=== PATIENT | female | born 1960 | race African-American/Black ===

== ENCOUNTER 2018-09-30 12:16 | Emergency (ER) | payer MEDICAID ==
[~2018-09-30] VITALS: Ht 160 cm; Wt 46.3 kg
[2018-09-30 13:36] LABS: Basophils # (auto) 0 uL; Basophils % (auto) 0.3 % (0.0-2.0); Eosinophils # (auto) 0 uL; Eosinophils % (auto) 0.3 % (0.0-7.0); Hematocrit 41.5 % (36.0-46.0); Lymphocytes # (auto) 2.2 uL; Lymphocytes % (auto) 23.8 % (10.0-50.0); Mean Corpuscular Hgb Conc. 33.6 g/dL (32.0-36.0); Monocytes # (auto) 0.7 uL; Monocytes % (auto) 7.1 % (0.0-12.0); Neutrophils # (auto) 6.5 uL; Neutrophils % (auto) 68.5 % (37.0-80.0); Platelet Count (auto) 275 10^3/uL (140-450); Red Blood Cells 4.52 10^6/uL (4.0-5.20); Red Cell Distribution Width 14.3 % (11.8-14.3); White Blood Cell 9.4 10^3/uL (4.4-10.8)
[2018-09-30 13:49] LABS: INR 0.97 (0.9-1.15); Partial Thromboplastin Time 25.4 sec (23.78-33.04); Prothrombin Time 10.4 sec (9.27-12.13)
[2018-09-30 13:53] LABS: Albumin 4.4 g/dL (3.4-5.0); Anion Gap 5 (5-15); Blood Urea Nitrogen 24 mg/dL (7-18); Calcium 9.4 mg/dL (8.5-10.1); Carbon Dioxide 30 mmol/L (21-32); Chloride 104 mmol/L (98-107); Glucose 97 mg/dL (74-106); Potassium 4.2 mmol/L (3.5-5.1); Sodium 139 mmol/L (136-145)
[2018-09-30 14:02] LABS: Alanine Aminotransferase 30 U/L (13-56); Alkaline Phosphatase 75 U/L (45-117); Aspartate Aminotransferase 26 U/L (15-37); BUN/Creatinine Ratio 22.2; Bilirubin, Total 0.4 mg/dL (0.2-1.0); GFR African American 67 mL/min; GFR Non-African American 56 mL/min; Total Protein 8.5 g/dL (6.4-8.2)
[2018-09-30 16:10] VITALS: BP 130/87
== END 2018-09-30 16:24 | disposition home or self-care (01) ==
LOC: ER 12:22
DX: S42.251A Displaced fracture of greater tuberosity of right humerus, initial encounter for closed fracture (principal); W19.XXXA Unspecified fall, initial encounter; Y93.89 Activity, other specified; Y92.89 Other specified places as the place of occurrence of the external cause; Y99.8 Other external cause status
CPT/HCPCS: 29105; 36415; 70450; 73030; 73502; 80053; 84484; 85025; 85610; 85730; 93005

== ENCOUNTER 2019-05-19 10:51 | Emergency (ER) | payer MEDICAID ==
[~2019-05-19] VITALS: Ht 160 cm; Wt 49.9 kg
[2019-05-19 11:35] VITALS: BP 209/115
[2019-05-19] MEDS ORDERED: ONDANSETRON ODT 4 MG TAB PO ONE (11:45)
[2019-05-19 12:28] LABS: Basophils # (auto) 0.1 uL; Basophils % (auto) 0.6 % (0.0-2.0); Eosinophils # (auto) 0 uL; Eosinophils % (auto) 0.5 % (0.0-7.0); Hemoglobin 13.8 g/dL (12.2-16.2); Lymphocytes # (auto) 1.8 uL; Lymphocytes % (auto) 19.1 % (10.0-50.0); Mean Corpuscular Hemoglobin 29.1 pg (28.0-32.0); Mean Corpuscular Hgb Conc. 32.8 g/dL (32.0-36.0); Mean Corpuscular Volume 88.9 fL (80.0-100.0); Monocytes # (auto) 0.5 uL; Monocytes % (auto) 5.3 % (0.0-12.0); Neutrophils % (auto) 74.5 % (37.0-80.0); Platelet Count (auto) 416 10^3/uL (140-450); Red Blood Cells 4.73 10^6/uL (4.0-5.20); Red Cell Distribution Width 13.9 % (11.8-14.3); White Blood Cell 9.4 10^3/uL (4.4-10.8)
[2019-05-19 12:50] LABS: Potassium 3.9 mmol/L (3.5-5.1)
[2019-05-19 13:06] LABS: Albumin 4.9 g/dL (3.4-5.0); BUN/Creatinine Ratio 13.6; Bilirubin, Total 0.3 mg/dL (0.2-1.0); Total Protein 9.6 g/dL (6.4-8.2)
== END 2019-05-19 13:06 | disposition left against medical advice (07) ==
LOC: ER 10:51
DX: G44.209 Tension-type headache, unspecified, not intractable (principal); J44.9 Chronic obstructive pulmonary disease, unspecified; I10 Essential (primary) hypertension; F17.210 Nicotine dependence, cigarettes, uncomplicated; F12.90 Cannabis use, unspecified, uncomplicated; Z88.5 Allergy status to narcotic agent; Z86.73 Personal history of transient ischemic attack (TIA), and cerebral infarction without residual deficits; Z90.710 Acquired absence of both cervix and uterus
CPT/HCPCS: 36415; 70450; 80053; 85025; 99284; Q0162

== ENCOUNTER 2021-04-03 14:25 | Inpatient (IN) | payer OTHER, MEDICAID ==
[~2021-04-03] VITALS: Ht 160 cm; Wt 47.2 kg
[2021-04-03 16:06] LABS: Basophils # (auto) 0 10 ^3/uL (0-0.2); Basophils % (auto) 0.5 % (0.0-2.0); Eosinophils # (auto) 0 10 ^3/uL (0-0.8); Eosinophils % (auto) 0.2 % (0.0-7.0); Hematocrit 34.3 % (36.0-46.0); Hemoglobin 11.2 g/dL (12.2-16.2); Lymphocytes # (auto) 1.2 10 ^3/uL (0.4-5.4); Lymphocytes % (auto) 24.1 % (10.0-50.0); Mean Corpuscular Hgb Conc. 32.6 g/dL (32.0-36.0); Monocytes # (auto) 0.6 10 ^3/uL (0-1.3); Monocytes % (auto) 11.2 % (0.0-12.0); Neutrophils # (auto) 3.2 10 ^3/uL (1.6-8.6); Nucleated Red Blood Cells % 0.2 %; Red Blood Cells 3.61 10^6/uL (4.0-5.20); Red Cell Distribution Width 13.9 % (11.8-14.3)
[2021-04-03 16:24] LABS: Albumin 3.2 g/dL (3.4-5.0); Anion Gap 9 (5-15); Blood Urea Nitrogen 13 mg/dL (7-18); Calcium 9.4 mg/dL (8.5-10.1); Carbon Dioxide 24 mmol/L (21-32); Chloride 99 mmol/L (98-107); Glucose 94 mg/dL (74-106); Potassium 3.5 mmol/L (3.5-5.1); Sodium 132 mmol/L (136-145)
[2021-04-03 16:29] LABS: Alanine Aminotransferase 30 U/L (13-56); Alkaline Phosphatase 100 U/L (45-117); Aspartate Aminotransferase 63 U/L (15-37); BUN/Creatinine Ratio 10.1; Bilirubin, Total 0.2 mg/dL (0.2-1.0); GFR African American 55 mL/min; GFR Non-African American 45 mL/min
[2021-04-03] MEDS ORDERED: IOHEXOL 350 MG/ML 100ML IJ ONE (16:57)
[2021-04-03 17:27] LABS: Urine Bacteria NONE SEEN /hpf (None Seen); Urine Blood Negative /uL (Negative); Urine Hyaline Cast FEW /lpf (0 - 2); Urine Mucus FEW (None Seen); Urine Specific Gravity 1.019 (1.001-1.035); Urine WBC 3 /hpf (0 - 5)
[2021-04-03] MEDS ORDERED: ZINC SULFATE 220mg CAP or TAB PO ONE (21:15)
[2021-04-03] MEDS ORDERED: CHOLECALCIFEROL (VITD3) 2,000 UNIT CAP/TAB PO ONE (21:15)
[2021-04-03] MEDS ORDERED: methylPREDNISolone SOD SUCC 125 MG/2 ML VL IV ONE (21:15)
[2021-04-03] MEDS ORDERED: AZITHROMYCIN 500MG/ 250ML 250 ML IV ONE (21:15)
[2021-04-03] MEDS ORDERED: ASCORBIC ACID 500 MG TAB PO ONE (21:15)
[2021-04-03] MEDS ORDERED: NITROGLYCERIN 0.4 MG SL TAB SL PRN (21:45)
[2021-04-03] MEDS ORDERED: traMADol HCL 50 MG TAB PO PRN (21:45)
[2021-04-03] MEDS: HYDROcodone-ACET 5/325MG TAB PO PRN (23:31)
[2021-04-04 02:34] VITALS: BP 114/83
[2021-04-04 05:34] LABS: Hematocrit 33.3 % (36.0-46.0); Hemoglobin 11.2 g/dL (12.2-16.2); Mean Corpuscular Hemoglobin 31.6 pg (28.0-32.0); Mean Corpuscular Hgb Conc. 33.5 g/dL (32.0-36.0); Mean Corpuscular Volume 94.1 fL (80.0-100.0); Red Blood Cells 3.54 10^6/uL (4.0-5.20); Red Cell Distribution Width 14.4 % (11.8-14.3); White Blood Cell 2.3 10^3/uL (4.4-10.8)
[2021-04-04 05:56] LABS: Calcium 9.1 mg/dL (8.5-10.1); Potassium 4.1 mmol/L (3.5-5.1)
[2021-04-04 05:58] LABS: BUN/Creatinine Ratio 16.5
[2021-04-04 06:31] LABS: Basophils % (manual) 0 (0.0-2.0); Blast Cells 0; Eosinophils % (manual) 0 (0-7); Metamyelocytes % 0; Myelocytes % 0; Promyelocytes % 0; Reactive Lymphocytes 0
[2021-04-04 08:27] LABS: Band Neutrophils % (manual) 5; Lymphocytes % (manual) 29 (10.0-50.0); Monocytes % (manual) 1 (0-12)
[2021-04-04] MEDS: cefTRIAXone 1GM/50ML D5W 50 ML IV SCH (09:00)
[2021-04-04] MEDS: DexAMETHasone SOD PHOS 10MG/1ML VIAL INJ IV SCH (10:00)
[2021-04-04] MEDS: ENOXAPARIN SOD 40 MG/0.4 ML SYRINGE SC SCH (10:00)
[2021-04-04] MEDS: AZITHROMYCIN 500MG/ 250ML 250 ML IV SCH (10:00)
[2021-04-04] MEDS: ASCORBIC ACID 500 MG TAB PO SCH (10:00)
[2021-04-04] MEDS: ZINC SULFATE 220mg CAP or TAB PO SCH (10:00)
[2021-04-04] MEDS: CHOLECALCIFEROL (VITD3) 2,000 UNIT CAP/TAB PO SCH (10:00)
[2021-04-04] MEDS: HYDROcodone-ACET 5/325MG TAB PO PRN (21:36)
[2021-04-04] MEDS: ALBUTEROL SULF HFA 90MCG INH 200DOSE IN PRN (22:28)
[2021-04-05 04:48] LABS: Basophils # (auto) 0 10 ^3/uL (0-0.2); Basophils % (auto) 0.4 % (0.0-2.0); Eosinophils # (auto) 0 10 ^3/uL (0-0.8); Hematocrit 32.3 % (36.0-46.0); Hemoglobin 10.7 g/dL (12.2-16.2); Lymphocytes # (auto) 0.9 10 ^3/uL (0.4-5.4); Lymphocytes % (auto) 17.1 % (10.0-50.0); Mean Corpuscular Hemoglobin 30.6 pg (28.0-32.0); Mean Corpuscular Hgb Conc. 33.1 g/dL (32.0-36.0); Mean Corpuscular Volume 92.5 fL (80.0-100.0); Monocytes # (auto) 0.5 10 ^3/uL (0-1.3); Monocytes % (auto) 9.4 % (0.0-12.0); Neutrophils # (auto) 3.8 10 ^3/uL (1.6-8.6); Neutrophils % (auto) 73.1 % (37.0-80.0); Nucleated Red Blood Cells % 0.1 %; Red Blood Cells 3.49 10^6/uL (4.0-5.20); Red Cell Distribution Width 13.9 % (11.8-14.3); White Blood Cell 5.2 10^3/uL (4.4-10.8)
[2021-04-05 05:08] LABS: Potassium 3.6 mmol/L (3.5-5.1)
[2021-04-05 05:25] LABS: BUN/Creatinine Ratio 20.9; Calcium 9.3 mg/dL (8.5-10.1)
[2021-04-05] MEDS: ALBUTEROL SULF HFA 90MCG INH 200DOSE IN PRN (06:59)
[2021-04-05] MEDS: cefTRIAXone 1GM/50ML D5W 50 ML IV SCH (08:43)
[2021-04-05] MEDS: AZITHROMYCIN 500MG/ 250ML 250 ML IV SCH (10:19)
[2021-04-05] MEDS: CHOLECALCIFEROL (VITD3) 2,000 UNIT CAP/TAB PO SCH (10:20)
[2021-04-05] MEDS: ASCORBIC ACID 500 MG TAB PO SCH (10:20)
[2021-04-05] MEDS: ZINC SULFATE 220mg CAP or TAB PO SCH (10:20)
[2021-04-05] MEDS: ENOXAPARIN SOD 40 MG/0.4 ML SYRINGE SC SCH (10:20)
[2021-04-05] MEDS: DexAMETHasone SOD PHOS 10MG/1ML VIAL INJ IV SCH (10:20)
[2021-04-05] MEDS ORDERED: ALBUAER3 IN (12:05)
[2021-04-05] MEDS ORDERED: DOXY-332 PO (12:05)
[2021-04-05] MEDS ORDERED: DEXA6TAB6 PO (12:05)
[2021-04-05] MEDS ORDERED: REMDESIVIR PER PHARMACY 0 ML IV SCH (13:00)
[2021-04-05] MEDS ORDERED: REMDESIVIR 200 MG in NS 210ml LOADING DOSE ADULT IV ONE (15:00)
[2021-04-05 18:00] VITALS: BP 129/90
[2021-04-06] MEDS ORDERED: REMDESIVIR 100mg 100 MG in SODIUM CHL 0.9% 230 ML IV SCH (15:00)
== END 2021-04-05 20:20 | disposition home or self-care (01) | DRG 177 ==
LOC: ER 14:25 → TELE 21:44
PROVIDERS: ADMIT Hospitalist; ATTEND Hospitalist
PROC: XW033E5 Introduction of Remdesivir Anti-infective into Peripheral Vein, Percutaneous Approach, New Technology Group 5 (ICD-10-PCS; principal; 2021-04-05)
DX: U07.1 COVID-19 (principal); J96.01 Acute respiratory failure with hypoxia; J12.82 Pneumonia due to coronavirus disease 2019; J15.9 Unspecified bacterial pneumonia; F17.210 Nicotine dependence, cigarettes, uncomplicated; I10 Essential (primary) hypertension; R79.89 Other specified abnormal findings of blood chemistry; Z80.9 Family history of malignant neoplasm, unspecified; Z88.5 Allergy status to narcotic agent; Z83.3 Family history of diabetes mellitus; Z86.73 Personal history of transient ischemic attack (TIA), and cerebral infarction without residual deficits; Z90.710 Acquired absence of both cervix and uterus
CPT/HCPCS: 36415; 36600; 71045; 71275; 80048; 80053; 81001; 82728; 82805; 83605; 83880; 84484; 85007; 85025; 85027; 85379; 86141; 87040; 87426; 93005; 93970; 94640; 96365; 96375; 99291; G0378; J0696; J1100

== ENCOUNTER 2025-04-06 00:31 | Inpatient (IN) | payer OTHER, MEDICAID ==
[~2025-04-06] VITALS: Ht 160 cm; Wt 44.0 kg
[2025-04-06] VITALS (10 sets, daily range): BP systolic 115–147; BP diastolic 73–94; PULSE 81–115; RESP 16–21; TEMP 97.7–98.4; O2SAT 96–100
[~2025-04-06 00:31] MED LIST: ALBU108A5 INH; ALBUAER3 IN; AMIT-399 PO; DEXA6TAB6 PO; DIPH-751 PO; DOXY100C79 PO; GABA800T97 PO; HYDR-4072 PO; NIFE1TAB30 PO; QUET100T47 PO; ROSU20TA56 PO; TRIO1TP TOP
[2025-04-06] MEDS: ONDANSETRON HCL 4 MG/2 ML VIAL IV ONE ×2 (01:23→03:16)
[2025-04-06] MEDS: MORPHINE SULFATE 4 MG/ML SYR/VIAL IV ONE (01:24)
--- NOTE | 2025-04-06 01:37 | ED.PDOC ---
Musculoskeletal HPI Comments 64-year-old female complains of left hip dull aching pain for the last 3 hours after she fell from a bed to the floor. Patient has been unable to bear weight since then. The pain is severe and worse with any kind of movement Chief Complaint: Lower Extremity Time Seen by MD: 00:52 Primary Care Provider: IDALIA Reviewed Notes: Nurses Notes, Lacing Cutter Notes Allergies: Coded Allergies: Codeine (Verified Allergy, Mild, 04/03/21) Ibuprofen (Unverified Allergy, Unknown, 04/06/25) Uncoded Allergies: CODIENE (Allergy, Unknown, 05/19/19) Home Meds Active Scripts Doxycycline (Monohydrate) (Doxycycline) 100 Mg Cap, 100 MG PO Q12HR, #14 CAP Prov:ZIGGY MARTINEZ MD 04/05/21 Dexamethasone (Decadron) 6 Mg Tab, 6 MG PO DAILY, #7 TAB Prov:ZIGGY MARTINEZ MD 04/05/21 Albuterol Sulfate (VENTOLIN MDI) 90 Mcg Ih, 90 MCG IN Q4HP PRN, #1 INH Prov:ZIGGY MARTINEZ MD 04/05/21 Information Source: Patient Mode of Arrival: EMS Location: Left Extremity Location: Hip Timing: Hours Severity: Severe Pain: Severe Past Medical History PAST MEDICAL HISTORY: COPD, CVA, HTN, Thyroid Surgical History: 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 Family History Family History: Family hx of DM, Family hx of Cancer Social History Smoker: Cigarettes Alcohol: Occasionally Drugs: Marijuana Lives In: Home Musculoskeletal: reports: others (Left hip pain) All Other Systems: Reviewed and Negative Physical Exam General Appearance: Severe Distress HEENT: Normal ENT Inspection, Pharynx Normal, TMs Normal Neck: Full Range of Motion, Non-Tender, Normal, Normal Inspection Respiratory: Chest Non-Tender, Lungs Clear, No Accessory Muscle Use, No Respiratory Distress, Normal Breath Sounds Cardiovascular: No Edema, No JVD, No Murmur, No Gallop, Normal Peripheral Pulses, Regular Rate/Rhythm Breast Exam: Deferred Gastrointestinal: No Organomegaly, Non Tender, No Pulsatile Mass, Normal Bowel Sounds, Soft Genitalia: Deferred Pelvic: Deferred Rectal: Deferred Extremities: Tender, Other (left hip tender) Musculoskeletal : Apperance: Normal Neurologic: Alert, cut tobacco bulker II-XII nml as Tested, No Motor Deficits, Normal Affect, Normal Mood, No Sensory Deficits Cerebellar Function: Normal Reflexes: Normal Skin: Dry, Normal Color, Warm Lymphatic: No Adenopathy Was a procedure done? Was a procedure done?: No Differential Diagnosis EXT Differential Diagnosis: Cellulitis, Deep Vein Thrombosis, Compartment Syndrome, Fracture, Sprain, Dislocation, Laceration, DJD, Contusion, Strain, Septic, Neurovascular injury, Arthritis, Other X-Ray, Labs, Meds, VS Vital Signs Date Time Temp Pulse Resp B/P (MAP) Pulse Ox O2 Delivery O2 Flow Rate FiO2 04/06/25 01:24 99 17 151/101 04/06/25 01:11 97.7 99 17 99 97.7 04/06/25 01:11 99 17 99 Room Air* 0 21 04/06/25 00:40 97.8 108 18 158/98 99 97.8 Current Medications Medications (Trade) Dose Ordered Sig/Benjamin Route Start Time Stop Time Status Last Admin Ondansetron HCl (Zofran) 4 mg ONCE ONCE IV 04/06/25 01:15 04/06/25 01:16 DC 04/06/25 01:23 Morphine Sulfate 4 mg ONCE ONCE IV 04/06/25 01:15 04/06/25 01:16 DC 04/06/25 01:24 Time of 1ST Reevaluation: 00:30 Reevaluation 1ST: Unchanged Consultation: Other (Orthopedics) Patient Education/Counseling: Diagnosis, Treatment Family Education/Counseling: No Family Present Departure 1 Departure Time of Disposition: 01:33 Impression: Primary Impression: Closed left hip fracture Disposition: ADMITTED INPATIENT Condition: Guarded Discharged With: Self Comments Patient appears to have acute left hip fracture, closed, intertrochanteric. Patient will need to be admitted for orthopedic consultation and possible ORIF. Patient will be admitted by hospitalist service Critical Care Note Critical Care Time?: No Stability Stability form required: No Heart Score Heart Score: Heart Score Response (Comments) Value History N/A 0 EKG N/A 0 Age N/A 0 Risk Factors N/A 0 Troponin N/A 0 Total 0 EKATERINA TRUJILLO MD Apr 06, 2025 01:37
[2025-04-06 01:50] LABS: Hematocrit 34.0 % (36.0-46.0); Hemoglobin 11.7 g/dL (12.2-16.2); Mean Corpuscular Hemoglobin 36.5 pg (28.0-32.0); Mean Corpuscular Volume 106.3 fL (80.0-100.0); Nucleated Red Blood Cells % 0.3 %
[2025-04-06 01:53] LABS: Chloride 107 mmol/L (98-107); Potassium 4.6 mmol/L (3.5-5.1); Sodium 141 mmol/L (136-145)
[2025-04-06 01:54] LABS: Anion Gap 16 (5-15); Calcium 9.8 mg/dL (8.7-10.4)
[2025-04-06 01:55] LABS: Carbon Dioxide 18 mmol/L (20-31)
[2025-04-06 01:59] LABS: BUN/Creatinine Ratio 8.3 (10.0-20.0)
[2025-04-06 02:00] LABS: Magnesium 2.0 mg/dL (1.6-2.6)
[2025-04-06 02:03] LABS: Blood Urea Nitrogen 7 mg/dL (9-23); Glucose 108 mg/dL (74-106)
[2025-04-06 02:07] LABS: INR 1.04 (0.9-1.15); Partial Thromboplastin Time < 20.0 SEC (24.5-34.5); Prothrombin Time 11.0 sec (9.3-11.8)
--- NOTE | 2025-04-06 03:11 | DVH ---
CHEST RADIOGRAPH Indication: weak Technique: Single frontal view of the chest was obtained Comparison: CT ANGIO CHEST CONTRAST on DOS: 04/03/21, CHEST PORTABLE on DOS: 04/03/21 FINDINGS: Lines and Tubes: None Lungs: No focal consolidation. Pleura: No effusion. No pneumothorax. Cardiomediastinal contours: Unremarkable Bones: No acute osseous abnormality. IMPRESSION: 1. No acute cardiopulmonary disease.
[2025-04-06] MEDS: HYDROmorphone HCL 2 MG/ML VL/or syr IV ONE (03:15)
[2025-04-06] MEDS: hydrALAZINE HCL 20 MG/ML VL IV ONE (03:18)
--- NOTE | 2025-04-06 04:13 | DVH ---
CLINICAL INDICATION: pain s/p fall TECHNIQUE: XY L HIP COMPLETE XRAY Comparison: None FINDINGS/IMPRESSION: : Moderately displaced left intertrochanteric femoral fracture. Soft tissues are unremarkable.
[2025-04-06 04:25] LABS: Urine Protein, UAD TRACE (Negative)
--- NOTE | 2025-04-06 04:33 | DVHHPRES ---
History of Present Illness Resident Creating Document: MERCEDES FUNG RESIDENT History of Present Illness 64-year-old female history of hypertension, asthma reports left hip pain following a fall at home. States she tripped on the bed frame while caring for her grandchild with special needs. Denies loss of consciousness, chest pain or dizziness prior to the fall. Pain is 10/10 in intensity, localized to the left hip, worsened with movement, and partially relieved with rest. No numbness, tingling or weakness reported. The patient endorsed multiple episodes of vomiting out of pain while history taking. Past medical history: Hypertension, asthma Past surgical history: Hysterectomy Home medications: Albuterol inhaler, gabapentin, Benadryl, Allergies: Codeine, ibuprofen Smokin pack years, actively smoking Alcohol: Drinks few shots every day Drugs: Actively using marijuana since age 25 PCP: Patient has a PCP, but could not mention the name Full code: DNR DNI Review of Systems Gastrointestinal: Nausea, Vomiting Musculoskeletal: leg pain Allergies: Coded Allergies: Codeine (Verified Allergy, Mild, 04/03/21) Ibuprofen (Unverified Allergy, Unknown, 04/06/25) Uncoded Allergies: CODIENE (Allergy, Unknown, 05/19/19) Medications Current Medications Medications Dose Ordered Sig/Benjamin Route Start Time Stop Time Status Last Admin Dose Admin Sodium Chloride 10 ml Q8HR IV 04/06/25 06:00 Sodium Chloride 1,000 ml @ 60 mls/hr [id number] IV 04/06/25 04:15 Ondansetron HCl 4 mg Q4HP PRN IV 04/06/25 04:15 Acetaminophen 650 mg Q6HP PRN PO 04/06/25 04:15 Exam Vital Signs Vital Signs Date Time Temp Pulse Resp B/P (MAP) Pulse Ox O2 Delivery O2 Flow Rate FiO2 04/06/25 03:45 100 19 166/100 04/06/25 02:11 97.7 99 97.7 04/06/25 01:11 Room Air* 0 21 Exam Pt is lying on bed General Appearance: Alert, Oriented X3, Cooperative, Mild distress HEENT: Atraumatic, Mucous membranes moist/pink Respiratory: Clear to auscultation, Normal air movement, No added sounds Cardiovascular: Regular rate, Normal S1, Normal S2, No murmurs Abdominal/ : Active bowel sounds, Soft, no distention, no tenderness Extremities: Left lower extremity shortened and externally rotated, pulses intact, no edema Skin: No Significant rash, except past surgical scars Neuro: Normal speech, sensorimotor deficits none Psych/Mental Status: Mental status NL, Mood NL Nurse was there as soa engineer during examination Labs/Xrays Labs Test 04/06/25 03:30 04/06/25 01:21 Range/Units Urine Color Yellow Yellow Urine Clarity Clear Clear Urine pH 6.0 5.0-9.0 Urine Specific [place] 1.019 1.001-1.035 Urine Protein Trace H Negative Urine Ketones 1+ H Negative Urine Blood Negative Negative /uL Urine Nitrite Negative Negative Urine Bilirubin Negative Negative Urine Urobilinogen Normal Negative mg/dL Urine Leukocyte Esterase 2+ Negative /uL Urine RBC None seen 0 - 4 /hpf Urine Microscopic WBC 14 H 0-5 /HPF Urine Squamous Epithelial Cells Few <5 /hpf Urine Bacteria None seen None Seen /hpf Urine Glucose Normal Normal mg/dL White Blood Count 8.5 4.4-10.8 10^3/uL Red Blood Count 3.20 L 4.0-5.20 10^6/uL Hemoglobin 11.7 L 12.2-16.2 g/dL Hematocrit 34.0 L 36.0-46.0 % Mean Corpuscular Volume 106.3 H 80.0-100.0 fL Mean Corpuscular Hemoglobin 36.5 H 28.0-32.0 pg Mean Corpuscular Hemoglobin Concent 34.3 32.0-36.0 g/dL Red Cell Distribution Width 15.7 H 11.8-14.3 % Platelet Count 226 140-450 10^3/uL Mean Platelet Volume 6.7 L 6.9-10.8 fL Neutrophils (%) (Auto) 87.1 H 37.0-80.0 % Lymphocytes (%) (Auto) 8.0 L 10.0-50.0 % Monocytes (%) (Auto) 4.6 0.0-12.0 % Eosinophils (%) (Auto) 0.0 0.0-7.0 % Basophils (%) (Auto) 0.3 0.0-2.0 % Neutrophils # (Auto) 7.4 1.6-8.6 10 ^3/uL Lymphocytes # (Auto) 0.7 0.4-5.4 10 ^3/uL Monocytes # (Auto) 0.4 0-1.3 10 ^3/uL Eosinophils # (Auto) 0 0-0.8 10 ^3/uL Basophils # (Auto) 0 0-0.2 10 ^3/uL Nucleated Red Blood Cells 0.3 % Prothrombin Time 11.0 9.3-11.8 sec Prothrombin Time INR 1.04 0.9-1.15 Activated Partial Thromboplast Time < 20.0 L 24.5-34.5 SEC Sodium Level 141 136-145 mmol/L Potassium Level 4.6 3.5-5.1 mmol/L Chloride Level 107 98-107 mmol/L Carbon Dioxide Level 18 L 20-31 mmol/L Anion Gap 16 H 5-15 Blood Urea Nitrogen 7 L 9-23 mg/dL Creatinine 0.84 0.550-1.02 mg/dL Glomerular Filtration Rate Calc 79 >90 mL/min BUN/Creatinine Ratio 8.3 L 10.0-20.0 Serum Glucose 108 H 74-106 mg/dL Calcium Level 9.8 8.7-10.4 mg/dL Magnesium Level 2.0 1.6-2.6 mg/dL SEPSIS Sepsis Screen Date sepsis recognized/suspect: Apr 06, 2025 Time Sepsis recognized/suspect: 114 Recent Procedure: No On Antibiotic Therapy: No Respiratory Rate >20: No Heart Rate >90: Yes Temp<36 C (96.8 F) or >38.3 C: No SBP <90 or MAP <65 mmHG: No New Acute Mental Status Change: No Is the patient on CPAP, BIPAP,: No Physician Orders L Hip Complete Xray (04/06/25 01:09) Heplock Iv (04/06/25 01:09) Chest Xray 1 View (04/06/25 01:09) Electrocardigram (04/06/25 01:09) Admit (04/06/25 04:13) Allergies (04/06/25 04:13) Code Status (04/06/25 04:13) Sodium Chloride Lock (Saline Lock Ns) (04/06/25 06:00) Sodium Chloride 0.9% (04/06/25 04:15) Oxygen Per Hour (04/06/25 04:13) Ondansetron Hcl (Zofran) (04/06/25 04:15) Complete Blood Count (04/07/25 04:00) Comprehensive Metabolic Panel (04/07/25 04:00) Npo (Nothing By Mouth) Diet (04/06/25 Breakfast) Acetaminophen Tablet (Tylenol Tablet) (04/06/25 04:15) Notify Of Changes From Base (04/06/25 04:13) Vital Signs Date Time Temp Pulse Resp B/P (MAP) Pulse Ox O2 Delivery O2 Flow Rate FiO2 04/06/25 03:45 100 19 166/100 04/06/25 03:18 166/105 04/06/25 03:15 102 18 166/105 04/06/25 02:11 97.7 99 17 166/105 (125) 99 97.7 04/06/25 01:49 99 18 151/101 04/06/25 01:24 99 17 151/101 04/06/25 01:11 97.7 99 17 151/101 (118) 99 97.7 04/06/25 01:11 99 17 99 Room Air* 0 21 04/06/25 00:40 97.8 108 18 158/98 99 97.8 Laboratory Tests Test 04/06/25 01:21 White Blood Count 8.5 10^3/uL (4.4-10.8) Medications Medications Dose Ordered Sig/Benjamin Route Start Time Stop Time Status Last Admin Dose Admin Hydralazine HCl 10 mg ONCE ONCE IV 04/06/25 03:00 04/06/25 03:02 DC 04/06/25 03:18 10 MG Hydromorphone HCl 1 mg ONCE ONCE IV 04/06/25 03:00 04/06/25 03:02 DC 04/06/25 03:15 1 MG Morphine Sulfate 4 mg ONCE ONCE IV 04/06/25 01:15 04/06/25 01:16 DC 04/06/25 01:24 4 MG Ondansetron HCl 4 mg ONCE ONCE IV 04/06/25 01:15 04/06/25 01:16 DC 04/06/25 01:23 4 MG Ondansetron HCl 4 mg ONCE ONCE IV 04/06/25 03:00 04/06/25 03:02 DC 04/06/25 03:16 4 MG Assessment/Plan Assessment/Plan Severe left hip pain followed by mechanical fall Moderately displaced left intertrochanteric femoral fracture due to fall -pain management with acetaminophen, ketorolac and morphine -NPO -IV fluid -orthopedics consulted -discontinued home medications Benadryl due to concern for fall History of asthma Albuterol inhaler continued Quetiapine, indication nonspecific Discontinued for possible synergistic QT prolonging effect with ondansetron. Smoking, alcohol and marijuana use disorder Counseling done regarding cessation for more than 15 minutes GI prophylaxis: Pantoprazole DVT prophylaxis: SCDs, (Lovenox held, anticipating surgery within 24 hours) Diet: NPO Goals of care discussed with the patient for more than 27 minutes: Full code status Case discussed with Dr. Stephen, patient and RN Plan discussed with: Patient, Other My Orders Orders - MERCEDES FUNG RESIDENT Procedure Category Date Status Time Admit ADMIT 04/06/25 Transmitted 04:13 Allergies JU 04/06/25 In Process 04:13 Code Status CODE 04/06/25 Transmitted 04:13 Sodium Chloride Lock PHA 04/06/25 In Process (Saline Lock Ns) 06:00 Sodium Chloride 0.9% PHA 04/06/25 In Process 04:15 Oxygen Per Hour RT 04/06/25 Transmitted 04:13 Ondansetron Hcl PHA 04/06/25 In Process (Zofran) 04:15 Complete Blood Count LAB 04/07/25 Verified 04:00 Comprehensive LAB 04/07/25 Verified Metabolic Panel 04:00 Npo (Nothing By DIET 04/06/25 Transmitted Mouth) Diet Breakfast Acetaminophen Tablet PHA 04/06/25 In Process (Tylenol Tablet) 04:15 Notify Of Changes JU 04/06/25 In Process From Base 04:13 Date of Service: Apr 06, 2025 Billing Provider: MAE STEPHEN MD Common Visit Codes: [id number] INP/OBS CARE (HIGH) Secondary Visit Codes: [id number] CARE PLAN 30 MINUTES MERCEDES FUNG RESIDENT Apr 06, 2025 04:33
[2025-04-06] MEDS: SODIUM CHLORIDE 0.9% 1,000 ML IV SCH ×2 (04:40→11:30)
[2025-04-06] MEDS: ONDANSETRON HCL 4 MG/2 ML VIAL IV PRN (04:41)
[2025-04-06] MEDS ORDERED: KETOROLAC TROMETH 30 MG/ML 1ML VIAL IV PRN (04:45)
[2025-04-06] MEDS ORDERED: ALBUTEROL SULF 2.5 MG/0.5ML(0.5%) NEB SOLN NEB PRN ×2 (05:45→14:45)
[2025-04-06] MEDS ORDERED: ALBUTEROL SULF HFA 90MCG INH 200DOSE IN SCH (06:00)
[2025-04-06] MEDS: SODIUM CHLOR 0.9% PF (SALINE LOCK) 10ML VIAL/SYR IV SCH (06:06)
[2025-04-06] MEDS: MORPHINE SULFATE INJ 2 MG/ml SYRG IV PRN (08:54)
[2025-04-06] MEDS: GABAPENTIN 300 MG CAP PO SCH (10:02)
--- NOTE | 2025-04-06 12:23 | DVHINCON2 ---
Consult Note Consult Consult Note Consult Reason: Left hip pain, inability to bear weight --- History of Present Illness: Nely Banda is a 64-year-old female who presented to the emergency department after a ground-level fall from her bed earlier today. Since the fall, she has been unable to bear weight on her left leg. She reports immediate onset of left hip pain localized to the groin region. She denies head strike, loss of consciousness, chest pain, or dizziness at the time of the fall. She was evaluated in the ER, and X-rays confirmed a left intertrochanteric femoral fracture. Orthopedic surgery was consulted for further management. --- Past Medical History: Hypertension Asthma History of cardiac enlargement (per patient, not followed recently) Past Surgical History: None reported Allergies: NKDA (No Known Drug Allergies) per pt Social History: Tobacco: 1 pack per day smoker Alcohol: Denies Illicit drugs: Denies Living situation: Lives alone; daughter resides nearby and will assist with care --- Review of Systems: General: Denies fever, chills, weight loss Cardiac: No chest pain, palpitations; reports remote history of cardiac enlargement Respiratory: No current shortness of breath or wheezing; history of asthma GI/: Negative Neuro: No dizziness, syncope, focal weakness Musculoskeletal: Severe left hip/groin pain with inability to ambulate since fall --- Physical Examination: General: Alert, oriented 3, in moderate distress due to pain Vital Signs: reviewed elevated B.P possible 2/2 to pain Cardiac: Regular rate and rhythm Pulmonary: Non-labored breathing, clear to auscultation Abdomen: Soft, non-tender, non-distended Musculoskeletal: Left hip: Tenderness to palpation over groin and proximal thigh. Limited range of motion due to pain. Leg length: intact; no obvious external rotation deformity. No open wounds, no ecchymosis at this time. Neurovascular: Intact distally. --- Imaging: X-ray of the pelvis/left hip reviewed: mild displaced left intertrochanteric femoral fracture. --- Assessment: Nely Banda is a 64-year-old female with a history of hypertension, asthma, and smoking, presenting with a moderately displaced left intertrochanteric femoral fracture following a ground-level fall. She is unable to ambulate, and surgical fixation is indicated. --- Plan: 1. Surgical Management: Discussed case with Dr. Frias. Plan for open reduction and internal fixation with cephalomedullary nail today. 2. Pre-Operative Care: NPO since midnight. Pre-operative labs,and chest X-ray completed and reviewed. pending EKG, Pain control by ER 3. Medical Clearance: Discussed with Dr. Frias who plans to operate on this patient this afternoon 4. Smoking cessation counseling provided. 5. Consent obtained from the patient. Risks, benefits, and alternatives discussed, including risks of infection, bleeding, DVT/PE, nonunion, hardware failure, anesthesia complications. Patient verbalized understanding and is amenable to proceeding. 6. Disposition: Admit to orthopedic service for operative management this afternoon Plan discussed with: Patient, Other (bedside nurse) Visit Coding Surgery Date of Service if different f: Apr 06, 2025 Billing Provider: RADHA HUYNH Surgery Visit Codes: [id number] - INP CONSULT <55 MIN RADHA HUYNH Apr 06, 2025 12:23
[2025-04-06] MEDS ORDERED: MORPHINE SULFATE INJ 2 MG/ml SYRG IV PRN ×2 (12:30→15:00)
[2025-04-06] MEDS: METOCLOPRAMIDE HCL 5MG/ml INJ 2ml VIAL IV ONE (12:30)
[2025-04-06] MEDS ORDERED: HYDROmorphone HCL 2 MG/ML VL/or syr IV PRN ×2 (12:30)
[2025-04-06] MEDS ORDERED: MORPHINE SULFATE 4 MG/ML SYR/VIAL IV PRN (12:30)
[2025-04-06] MEDS ORDERED: MIDAZOLAM HCL 2MG/2ML 2ml VIAL (1mg/ml) ONE ×2 (13:04→14:06)
[2025-04-06] MEDS ORDERED: fentaNYL CITRATE 100 MCG/2 ML VL ONE (13:04)
[2025-04-06] MEDS ORDERED: SODIUM CHLORIDE LOCK 10 ML ONE (13:05)
[2025-04-06] MEDS ORDERED: PROPOFOL 10 MG/ML 20 ML IV ONE (13:05)
[2025-04-06] MEDS ORDERED: ONDANSETRON HCL 4 MG/2 ML VIAL ONE (13:05)
[2025-04-06] MEDS ORDERED: LIDOCAINE 1% INJ PF 5ML AMP ONE (13:05)
--- NOTE | 2025-04-06 13:36 | DVHOP2 ---
Operative Report - 2 Report Details Date: 04/06/25 Preop Diagnosis: Left hip intertrochanteric fracture, basicervical Postop Diagnosis: Left hip intertrochanteric fracture, basicervical Surgeon: Dayron Frias MD Tumbler Machine Operator Helper: Marielena Smith, Physician Tumbler Machine Operator Helper Anesthesiologist: Dr Rock Anesthesia: Regional (Spinal) Implant: AOS trochanteric nail, 8 mm, a cephalomedullary screw 80 mm, distal bicortical screw Consent: The patient was informed of the risks and benefits of the procedure. These include but are not limited to complications of anesthesia, postoperative infection, incomplete relief of symptoms, recurrence of symptoms, damage to blood vessels, nerves and tendons, deep venous thrombosis, pulmonary embolism and possible need for repeat surgery in the future. Complications: None Estimated Blood Loss: Less than 5 mL Indications for Surgery: The patient is a 64-year-old female who presented to the emergency room with a history of pain sustained by a fall. Clinical and radiological evaluation demonstrated intertrochanteric fracture, basicervical. Nonoperative and operative management options were discussed surgery was recommended for better healing, faster ambulation and return to daily activities and to prevent com plications such as bed sores, pneumonia and other medical complications. Benefits, risks and treatment alternatives were discussed with her and her daughter. Surgical complications were also discussed. The decided to proceed with surgical option. It was specifically mentioned that due to the basicervical nature of the fracture, the fracture may not heal and/or AVN may be noted in the future which might necessitate hip replacement Name of Procedure Performed Left hip intertrochanteric nailing Procedure Details Procedure Details: Patient was identified in the preoperative holding area and the surgical site was marked. The consent was verified. She was brought into the operating room and placed supine on the operating table. General anesthesia was administered. Intravenous antibiotics were given. The extremity was prepped and draped in the usual sterile manner. A timeout was called out to confirm the identity of the patient, the nature of surgery, the site of surgery, the availability of implants and x-rays and allergies to medications. The patient was placed on the hip fracture distraction system. Other extremity was placed on support in abduction and flexion. The C-arm was brought in and gentle traction was applied, some abduction, internal rotation and adduction was then applied. This maneuver was repeated once for better reduction. Subtrochanteric extension was noted. This was well aligned.. An incision was made 2 cm proximal to the greater trochanter. The IT band was incised. The greater trochanter was palpated and a guidepin was inserted. AP and lateral views were obtained to confirm the trajectory. Next a proximal reamer was inserted to open up the canal. Next based on intraoperative measurements, a 9 mm proximal nail was inserted from the greater trochanter into the shaft. Good reduction was noted. AP and lateral views were obtained to confirm the trajectory of the nail. Next, the cephalic guidewire was inserted to hold the reduction. This was in acceptable position. The patient did have some valgus [facility] ir[facility] anatomy and even the 130 nail was a little prominent in the trochanteric area. Next the screw was inserted based on measurements. 80 mm screw was inserted. Then the set screw just distal to the cephalic screw was inserted in compression was achieved using the proprietary system. Excellent reduction was noted both in the AP and lateral views. A distal bicortical locking screw was now inserted. Excellent fixation was noted. Irrigation was given. The iliotibial band was closed with 2-0 Ethibond in the proximal incision. All the skin incisions were closed with 2-0 Vicryl and then donnie were used. Sterile dressing was applied. Local anesthetic was injected. Traction was released in both legs and the patient was moved to the stretcher. Condition Good Disposition Home DAYRON FRIAS MD Apr 06, 2025 13:35
--- NOTE | 2025-04-06 14:36 | DVHPNRES ---
Progress Note Date Seen: Apr 06, 2025 Resident Creating Document: JERMAINE MELVIN Medical Necessity Reason Pt with a Central, PICC or Fol: No Subjective Review of Systems This is a 64-year-old female with a past medical history of hypertension and asthma who presents with severe left hip pain following a fall at home. She reports tripping over a bed frame while caring for her grandchild with special needs. Pain is rated 10/10, localized to the left hip, worsened with movement, and partially relieved with rest. She denies any loss of consciousness, chest pain, or dizziness prior to the fall. She denies numbness, tingling, or weakness. During history taking, the patient experienced multiple episodes of vomiting due to pain. Left Hip X-Ray confirmed a left intertrochanteric femoral fracture. She is unable to ambulate, and surgical fixation is indicated. Nonoperative and operative options were discussed, and surgery was recommended to promote healing, enable faster ambulation, and reduce the risk of complications such as pressure ulcers and pneumonia. Risks, benefits, and alternatives were reviewed with the patient. She elected to proceed with surgery, acknowledging the possibility of nonunion or avascular necrosis due to the fractures location, which may require future hip replacement. Past medical history: Hypertension, asthma Past surgical history: Hysterectomy Home medications: Albuterol inhaler, gabapentin, Benadryl, Allergies: Codeine, ibuprofen Smokin pack for 40 years, actively smoking Alcohol: Drinks few shots every day Drugs: Actively using marijuana since age 25 PCP: Patient has a PCP, but could not mention the name Full code: DNR DNI Allergies: Coded Allergies: Codeine (Verified Allergy, Mild, 04/03/21) Ibuprofen (Unverified Allergy, Unknown, 04/06/25) Uncoded Allergies: CODIENE (Allergy, Unknown, 05/19/19) Patient seen and examined at bedside. Patient is alert and oriented to time, place person and responding to all questions. Eyes: No Pain, No Vision change, No Conjunctivae inflammation, No Eyelid inflammation, No Other, No Redness ENT: No Ear pain, No Ear discharge, No Nose pain, No Nose discharge, No Nose congestion, No Mouth pain, No Mouth swelling, No Throat pain, No Throat swelling, No Other Cardiovascular: No Chest Pain, No Palpitations, No Orthopnea, No Paroxysmal No Dyspnea, No Edema, No Lt Headedness, No Other Respiratory: No Cough, No Dry, No Shortness of breath, No SOB with exertion, No Wheezing, No Hemoptysis, No Pleuritic Pain, No Sputum, No Other Gastrointestinal: Nausea, Vomiting, No Abdominal Pain, No Diarrhea, No Constipation, No Melena, No Hematochezia, No Other Genitourinary: No Dysuria, No Frequency, No Incontinence, No Hematuria, No Retention, No Other Musculoskeletal: Severe left hip/groin pain with inability to ambulate since fall. No other, No neck pain, No shoulder pain, No arm pain, No back pain, No hand pain, leg pain, No foot pain Skin: No Rash, No Lesions, No Jaundice, No Bruising, No Other Objective vital signs Vital Sign Date Time Temp Pulse Resp B/P (MAP) Pulse Ox O2 Delivery O2 Flow Rate FiO2 04/06/25 12:01 97.7 98 16 152/99 (116) 97 97.7 04/06/25 07:56 Room Air* 0 21 Total Intake and Output 04/05/25 04/05/25 04/06/25 15:00 23:00 07:00 Intake Total 60 ml Balance 60 ml medications Current Medications Medications Dose Ordered Sig/Benjamin Route Start Time Stop Time Status Last Admin Dose Admin Sodium Chloride 10 ml Q8HR IV 04/06/25 06:00 04/06/25 06:06 10 ML Ondansetron HCl 4 mg Q4HP PRN IV 04/06/25 04:15 04/06/25 08:53 4 MG Acetaminophen 650 mg Q6HP PRN PO 04/06/25 04:15 Ketorolac Tromethamine 15 mg Q6HPRN PRN IV 04/06/25 04:45 04/11/25 04:44 Hold Albuterol 90 mcg TID IN 04/06/25 06:00 Cancel Gabapentin 300 mg DAILY PO 04/06/25 10:00 04/06/25 10:02 300 MG Albuterol 2.5 mg TIDPRN PRN NEB 04/06/25 05:45 Nifedipine 60 mg DAILY PO 04/06/25 10:00 04/06/25 10:52 60 MG Sodium Chloride 1,000 ml @ 100 mls/hr Q10H IV 04/06/25 11:30 Morphine Sulfate 2 mg Q4H PRN IV 04/06/25 12:30 04/06/25 16:31 Ceftriaxone Sodium 50 ml @ 100 mls/hr DAILY@09 IV 04/07/25 09:00 Examination General Appearance: Alert, oriented 3, in moderate distress due to pain Head Exam: Normal inspection Neck Exam: Normal inspection. Non-tender. Normal alignment Pulmonary/Respiratory: Chest non-tender. Clear bilateral breath sounds, no crackles, no wheezing. Cardiovascular/Chest: Regular rate and rhythm. No murmurs. No JVD. Peripheral Pulses: 2+ Radial (R). 2+ Radial (L). 2+ Pedal (R). 2+ Pedal (L) Abdominal Exam: Normal bowel sounds. Soft. normal abdomen, no visible veins, Nontender. No hepatospenomegaly. No masses Ankle Exam: Negative ankle edema Lower extremities: Left lower extremity shortened and externally rotated, pulses intact, Negative lower extremity edema Left hip: Tenderness to palpation over groin and proximal thigh. Limited range of motion due to pain. Neuro/Mental Status: A&O x4. Coherent. Thoughts/Psych: Normal thought pattern. Appropriate mood and affect. Good judgement and insight Skin Exam: Normal inspection. Normal color. Warm. Dry laboratory and microbiology Laboratory Tests 04/06/25 01:21 Test 04/06/25 01:21 Range/Units Serum Glucose 108 H 74-106 mg/dL Labs and/or images reviewed: Labs reviewed by me, Image(s) reviewed by me Problem List/Assessment/Plan Problem List/Assessment/Plan # severe left hip pain followed by mechanical fall # left intertrochanteric femoral fracture due to fall -IV fluid -Left Hip X-Ray: Moderately displaced left intertrochanteric femoral fracture. Soft tissues are unremarkable. -Pelvis X-Ray: Interval placement of left femoral intramedullary ofelia, intertrochanteric screw transfixing the intertrochanteric fracture. Expected postoperative changes including surrounding soft tissue emphysema, edema. -Orthopedic consult -basicervical intertrochanteric fracture -open reduction and internal fixation with cephalomedullary nail today -NPO since midnight -Chest X-Ray-No acute cardiopulmonary disease. -Cefazolin -Morphine -[place] # possible neuropathy # possible anxiety -Gabapentin -Midazolam -Quetiapine # Essential hypertension -Nifedipine -Labetalol # Asthma -Albuterol inhaler # smoking, alcohol and marijuana use disorder -counselling done about cessation DVT prophylaxis: Levonox 30mg Goals of care: Full code, discussed for >16 minutes on 04/06/25 Plan discussed with patient Plan discussed with Dr. Aponte Plan discussed with: Patient My Orders My Orders Orders - JERMAINE MELVIN Procedure Category Date Status Time Insert/Manage Urinary JU 04/06/25 In Process Catheter 11:04 Ceftriaxone 1gm/50ml PHA 04/07/25 In Process D5w (Rocephin) 09:00 Ceftriaxone 1gm/50ml PHA 04/06/25 In Process D5w (Rocephin) 14:15 Date of Service: Apr 06, 2025 Billing Provider: JOSE APONTE MD Common Visit Codes: [id number] INP/OBS CARE(HIGH) Secondary Visit Codes: [id number] CARE PLAN 30 MINUTES JERMAINE MELVIN Apr 06, 2025 14:36 JOSE APONTE MD Apr 11, 2025 18:57
[2025-04-06] MEDS ORDERED: TRIAMCINOLONE ACET 0.1% TOPICAL CREAM 15GM TOP SCH (14:45)
[2025-04-06] MEDS ORDERED: NITROGLYCERIN 0.4 MG SL TAB SL PRN (15:00)
[2025-04-06] MEDS ORDERED: ceFAZolin 1GM/50ML 50 ML IV SCH (15:00)
[2025-04-06] MEDS ORDERED: HYDROcodone-ACET 5/325MG TAB PO PRN (15:00)
--- NOTE | 2025-04-06 15:27 | DVH ---
Indication: Post op eval Technique: XY PELVIS APXY Comparison: 04/06/2025 FINDINGS/IMPRESSION: Interval placement of left femoral intramedullary ofelia, intertrochanteric screw transfixing the intert rochanteric fracture. Expected postoperative changes including surrounding soft tissue emphysema, lorena arboleda.
[2025-04-06] MEDS: BUPIVACAINE 0.5% P/F INJ 10 ML VIAL ONE (15:37)
[2025-04-06] MEDS: LACTATED RINGER'S 1,000 ML IV SCH (15:46)
[2025-04-06] MEDS: ceFAZolin 1GM/50ML 50 ML IV ONE (15:47)
--- NOTE | 2025-04-06 15:56 | DVH ---
C-ARM FLUOROSCOPY: PROCEDURE: Left hip ORIF FLUOROSCOPY TIME: 95.1 seconds DAP: 6.0 mgy FINDINGS: Spot intraoperative C arm radiographs demonstrating left hip ORIF. IMPRESSION: Please refer to surgical report for detailed findings.
[2025-04-06] MEDS: LABETALOL HCL 20 MG/4 ML VL IV ONE ×2 (16:05)
[2025-04-06] MEDS: ceFAZolin 1GM/50ML 50 ML IV SCH (18:50)
[2025-04-06] MEDS: HYDROcodone-ACET 10/325MG TAB PO PRN (18:50)
[2025-04-06] MEDS: MELATONIN 5 MG TAB PO ONE (22:11)
[2025-04-06] MEDS: ENOXAPARIN SOD 30 MG/0.3 ML SYRINGE SC SCH (22:11)
[2025-04-06] MEDS: HYDROmorphone HCL 2 MG/ML VL/or syr IV PRN (22:12)
[2025-04-07] VITALS (9 sets, daily range): BP systolic 96–144; BP diastolic 58–83; PULSE 98–127; RESP 18–19; TEMP 98–98.3; O2SAT 92–100
[2025-04-07] MEDS: HYDROcodone-ACET 7.5/325MG TAB PO PRN (02:21)
[2025-04-07 08:49] LABS: Hemoglobin 8.4 g/dL (12.2-16.2); Mean Corpuscular Hemoglobin 35.7 pg (28.0-32.0); Nucleated Red Blood Cells % 0.2 %
[2025-04-07 08:52] LABS: Hematocrit 24.7 % (36.0-46.0); Mean Corpuscular Volume 105.3 fL (80.0-100.0)
[2025-04-07 09:04] LABS: Alanine Aminotransferase 17 U/L (7-40); Albumin 4.1 g/dL (3.2-4.8); Alkaline Phosphatase 81 U/L (46-116); Anion Gap 10 (5-15); Carbon Dioxide 25 mmol/L (20-31); Chloride 102 mmol/L (98-107); Sodium 137 mmol/L (136-145); Total Protein 6.2 g/dL (5.7-8.2)
[2025-04-07 09:05] LABS: Bilirubin, Total 0.4 mg/dL (0.2-1.0)
[2025-04-07 09:10] LABS: BUN/Creatinine Ratio 7.4 (10.0-20.0); Blood Urea Nitrogen < 5 mg/dL (9-23); Calcium 8.4 mg/dL (8.7-10.4); Glucose 135 mg/dL (74-106); Potassium 3.3 mmol/L (3.5-5.1)
[2025-04-07] MEDS: POTASSIUM EFFERVESENT TAB 25 MEQ PO ONE (12:41)
--- NOTE | 2025-04-07 15:04 | DVHPNRES ---
Progress Note Date Seen: Apr 07, 2025 Resident Creating Document: JERMAINE MELVIN Medical Necessity Reason Pt with a Central, PICC or Fol: No Subjective Review of Systems This is a 64-year-old female with a past medical history of hypertension and asthma who presents with severe left hip pain following a fall at home. She reports tripping over a bed frame while caring for her grandchild with special needs. Pain is rated 10/10, localized to the left hip, worsened with movement, and partially relieved with rest. She denies any loss of consciousness, chest pain, or dizziness prior to the fall. She denies numbness, tingling, or weakness. During history taking, the patient experienced multiple episodes of vomiting due to pain. Left Hip X-Ray confirmed a left intertrochanteric femoral fracture. She is unable to ambulate, and surgical fixation is indicated. Nonoperative and operative options were discussed, and surgery was recommended to promote healing, enable faster ambulation, and reduce the risk of complications such as pressure ulcers and pneumonia. Risks, benefits, and alternatives were reviewed with the patient. She elected to proceed with surgery, acknowledging the possibility of nonunion or avascular necrosis due to the fractures location, which may require future hip replacement. Patient seen at bedside. Patient complains no new symptoms. Surgery was completed without any complications. Surgical dressing to the left hip visualizedclean, dry, and intact with minimal drainage. Patient instructed on plan of care and to call for assistance as needed. Patient has changed in code status from DNR to full code, which has been communicated and documented. Patient is currently awaiting physical therapy evaluation. Based on current functional status and anticipated needs, patient will likely require discharge to a retirement facility (SNF). Objective vital signs Vital Sign Date Time Temp Pulse Resp B/P (MAP) Pulse Ox O2 Delivery O2 Flow Rate FiO2 04/07/25 12:58 98.3 125 18 96/67 (77) 96 98.3 04/07/25 08:00 Room Air* 0 21 Total Intake and Output 04/06/25 04/06/25 04/07/25 15:00 23:00 07:00 Intake Total 1500 ml 850 ml Output Total 50 ml 750 ml Balance -50 ml 1500 ml 100 ml medications Current Medications Medications Dose Ordered Sig/Benjamin Route Start Time Stop Time Status Last Admin Dose Admin Sodium Chloride 10 ml Q8HR IV 04/06/25 06:00 04/07/25 14:00 10 ML Ondansetron HCl 4 mg Q4HP PRN IV 04/06/25 04:15 04/06/25 08:53 4 MG Acetaminophen 650 mg Q6HP PRN PO 04/06/25 04:15 Ketorolac Tromethamine 15 mg Q6HPRN PRN IV 04/06/25 04:45 04/11/25 04:44 Hold Albuterol 90 mcg TID IN 04/06/25 06:00 Cancel Gabapentin 300 mg DAILY PO 04/06/25 10:00 04/07/25 09:04 300 MG Albuterol 2.5 mg TIDPRN PRN NEB 04/06/25 05:45 Cancel Nifedipine 60 mg DAILY PO 04/06/25 10:00 04/07/25 09:04 60 MG Sodium Chloride 1,000 ml @ 100 mls/hr Q10H IV 04/06/25 11:30 04/07/25 06:13 100 MLS/HR Quetiapine Fumarate 100 mg DAILY PO 04/07/25 10:00 04/07/25 09:04 100 MG Triamcinolone Acetonide 1 applic PRN TOP 04/06/25 14:45 Albuterol 2.5 mg Q8HPRN PRN NEB 04/06/25 14:45 Acetaminophen/ Hydrocodone Bitart 1 tab Q6HP PRN PO 04/06/25 14:45 04/07/25 12:41 1 TAB Lactated Ringer's 1,000 ml @ 100 mls/hr Q10H IV 04/06/25 15:00 04/07/25 11:38 100 MLS/HR Acetaminophen/ Hydrocodone Bitart 1 tab Q4HP PRN PO 04/06/25 15:00 Hold Hydromorphone HCl 1 mg Q2HP PRN IV 04/06/25 15:00 04/07/25 06:11 1 MG Enoxaparin Sodium 30 mg Q12HR SC 04/06/25 22:00 04/07/25 09:04 30 MG Acetaminophen/ Hydrocodone Bitart 1 tab Q4HP PRN PO 04/06/25 15:00 04/06/25 18:50 1 TAB Nitroglycerin 0.4 mg Q5MINP PRN SL 04/06/25 15:00 Morphine Sulfate 2 mg Q30M PRN IV 04/06/25 15:00 Examination General Appearance: Alert, oriented 3, in moderate distress due to pain Head Exam: Normal inspection Neck Exam: Normal inspection. Non-tender. Normal alignment Pulmonary/Respiratory: Chest non-tender. Clear bilateral breath sounds, no crackles, no wheezing. Cardiovascular/Chest: Regular rate and rhythm. No murmurs. No JVD. Peripheral Pulses: 2+ Radial (R). 2+ Radial (L). 2+ Pedal (R). 2+ Pedal (L) Abdominal Exam: Normal bowel sounds. Soft. normal abdomen, no visible veins, Nontender. No hepatospenomegaly. No masses Ankle Exam: Negative ankle edema Lower extremities: Left lower extremity shortened and externally rotated, pulses intact, Negative lower extremity edema Left hip: Tenderness to palpation over groin and proximal thigh. Limited range of motion due to pain. Neuro/Mental Status: A&O x4. Coherent. Thoughts/Psych: Normal thought pattern. Appropriate mood and affect. Good judgement and insight Skin Exam: Normal inspection. Normal color. Warm. Dry laboratory and microbiology Laboratory Tests 04/07/25 07:58 Test 04/07/25 07:58 Range/Units Serum Glucose 135 H 74-106 mg/dL Labs and/or images reviewed: Labs reviewed by me, Image(s) reviewed by me Problem List/Assessment/Plan Problem List/Assessment/Plan # s/p mechanical fall # left intertrochanteric femoral fracture due to fall -IV fluid -Left Hip X-Ray: Moderately displaced left intertrochanteric femoral fracture. Soft tissues are unremarkable. -Pelvis X-Ray: Interval placement of left femoral intramedullary ofelia, intertrochanteric screw transfixing the intertrochanteric fracture. Expected postoperative changes including surrounding soft tissue emphysema, edema. -Orthopedic consult -basicervical intertrochanteric fracture -open reduction and internal fixation with cephalomedullary nail today -NPO since midnight -Chest X-Ray-No acute cardiopulmonary disease. -Cefazolin -Morphine -[place] -topical triamcinolone -Dilaudid 1mg q2h # peripheral neuropathy # possible anxiety -Gabapentin -Midazolam -Quetiapine # Essential hypertension -Nifedipine -Labetalol # Asthma -Albuterol inhaler # smoking, alcohol and marijuana use disorder -counselling done about cessation # vitamin D deficiency - vitamin D 15,000 unit weekly DVT prophylaxis: Levonox 30mg bid Goals of care: Full code, discussed for >16 minutes on 04/07/25 Plan discussed with patient Plan discussed with Dr. Aponte Plan discussed with: Patient My Orders My Orders Orders - JERMAINE MELVIN Procedure Category Date Status Time Complete Blood Count LAB 04/08/25 Verified 04:00 Basic Metabolic Panel LAB 04/08/25 Verified 04:00 Date of Service: Apr 07, 2025 Billing Provider: JOSE APONTE MD Common Visit Codes: [id number] INP/OBS CARE(HIGH) JERMAINE MELVIN Apr 07, 2025 15:04 JOSE APONTE MD Apr 11, 2025 18:57
[2025-04-07] MEDS: ERGOCALCIFEROL 50,000 UNIT(1.25MG) CAP PO SCH (17:17)
[2025-04-08] VITALS (12 sets, daily range): BP systolic 98–137; BP diastolic 62–86; PULSE 110–125; RESP 16–20; TEMP 97.2–98.6; O2SAT 92–96
[2025-04-08 07:23] LABS: Chloride 106 mmol/L (98-107); Sodium 138 mmol/L (136-145)
[2025-04-08 07:24] LABS: Anion Gap 10 (5-15); Carbon Dioxide 22 mmol/L (20-31)
[2025-04-08 07:29] LABS: Glucose 102 mg/dL (74-106)
[2025-04-08 07:30] LABS: BUN/Creatinine Ratio 8.3 (10.0-20.0); Blood Urea Nitrogen < 5 mg/dL (9-23); Calcium 8.1 mg/dL (8.7-10.4); Potassium 3.3 mmol/L (3.5-5.1)
[2025-04-08 07:59] LABS: Hematocrit 21.7 % (36.0-46.0); Hemoglobin 7.2 g/dL (12.2-16.2); Mean Corpuscular Hemoglobin 35.4 pg (28.0-32.0); Mean Corpuscular Volume 105.9 fL (80.0-100.0); Nucleated Red Blood Cells % 0.2 %
--- NOTE | 2025-04-08 19:44 | DVHPNRES ---
Progress Note Date Seen: Apr 08, 2025 Resident Creating Document: JERMAINE MELVIN Medical Necessity Reason Pt with a Central, PICC or Fol: No Subjective Review of Systems This is a 64-year-old female with a past medical history of hypertension and asthma who presents with severe left hip pain following a fall at home. She reports tripping over a bed frame while caring for her grandchild with special needs. Pain is rated 10/10, localized to the left hip, worsened with movement, and partially relieved with rest. She denies any loss of consciousness, chest pain, or dizziness prior to the fall. She denies numbness, tingling, or weakness. During history taking, the patient experienced multiple episodes of vomiting due to pain. Left Hip X-Ray confirmed a left intertrochanteric femoral fracture. She is unable to ambulate, and surgical fixation is indicated. Nonoperative and operative options were discussed, and surgery was recommended to promote healing, enable faster ambulation, and reduce the risk of complications such as pressure ulcers and pneumonia. Risks, benefits, and alternatives were reviewed with the patient. She elected to proceed with surgery, acknowledging the possibility of nonunion or avascular necrosis due to the fractures location, which may require future hip replacement. Patient seen at bedside. Patient complains no new symptoms. Surgery was completed without any complications. Surgical dressing to the left hip visualizedclean, dry, and intact with minimal drainage. Patient instructed on plan of care and to call for assistance as needed. Patient has changed in code status from DNR to full code, which has been communicated and documented. Patient is currently awaiting physical therapy evaluation. Based on current functional status and anticipated needs, patient will likely require discharge to a long term facility (SNF). Prior to admission, she lived alone and was independent, using only a cane. She is agreeable to discharge to a long term facility (SNF) if needed and prefers [facility]. Patient has been informed of her rights to participate in discharge planning and to speak with a social services manager. She does not have a power of title attorney or advanced directive but was provided information and verbalized understanding. Earlier, the patient initially refused a blood transfusion for hemoglobin of 7.2 but later consented after discussion with her brother. She is currently stable, tolerating breakfast in high Fowlers position, with no signs of respiratory distress. Dressing to the left hip remains clean, dry, and intact with minimal drainage. Objective vital signs Vital Sign Date Time Temp Pulse Resp B/P (MAP) Pulse Ox O2 Delivery O2 Flow Rate FiO2 04/08/25 18:00 97.8 123 20 137/78 97.8 04/08/25 16:46 93 04/08/25 08:00 Room Air* 0 21 Total Intake and Output 04/07/25 04/07/25 04/08/25 15:00 23:00 07:00 Intake Total 725 ml 2350 ml Output Total 400 ml 950 ml Balance 325 ml 1400 ml medications Current Medications Medications Dose Ordered Sig/Benjamin Route Start Time Stop Time Status Last Admin Dose Admin Sodium Chloride 10 ml Q8HR IV 04/06/25 06:00 04/08/25 14:20 10 ML Ondansetron HCl 4 mg Q4HP PRN IV 04/06/25 04:15 04/06/25 08:53 4 MG Acetaminophen 650 mg Q6HP PRN PO 04/06/25 04:15 Albuterol 90 mcg TID IN 04/06/25 06:00 Cancel Gabapentin 300 mg DAILY PO 04/06/25 10:00 04/08/25 09:14 300 MG Albuterol 2.5 mg TIDPRN PRN NEB 04/06/25 05:45 Cancel Nifedipine 60 mg DAILY PO 04/06/25 10:00 Hold 04/07/25 09:04 60 MG Sodium Chloride 1,000 ml @ 100 mls/hr Q10H IV 04/06/25 11:30 04/08/25 13:30 100 MLS/HR Quetiapine Fumarate 100 mg DAILY PO 04/07/25 10:00 04/08/25 09:14 100 MG Triamcinolone Acetonide 1 applic PRN TOP 04/06/25 14:45 Albuterol 2.5 mg Q8HPRN PRN NEB 04/06/25 14:45 Hydromorphone HCl 1 mg Q2HP PRN IV 04/06/25 15:00 04/07/25 06:11 1 MG Enoxaparin Sodium 30 mg Q12HR SC 04/06/25 22:00 04/08/25 09:18 30 MG Acetaminophen/ Hydrocodone Bitart 1 tab Q4HP PRN PO 04/06/25 15:00 04/08/25 18:32 1 TAB Ergocalciferol 50,000 unit Q7D PO 04/07/25 16:30 04/07/25 17:17 50,000 UNIT Examination General Appearance: Alert, oriented 3, in moderate distress due to pain Head Exam: Normal inspection Neck Exam: Normal inspection. Non-tender. Normal alignment Pulmonary/Respiratory: Chest non-tender. Clear bilateral breath sounds, no crackles, no wheezing. Cardiovascular/Chest: Regular rate and rhythm. No murmurs. No JVD. Peripheral Pulses: 2+ Radial (R). 2+ Radial (L). 2+ Pedal (R). 2+ Pedal (L) Abdominal Exam: Normal bowel sounds. Soft. normal abdomen, no visible veins, Nontender. No hepatospenomegaly. No masses Ankle Exam: Negative ankle edema Lower extremities: Left lower extremity shortened and externally rotated, pulses intact, Negative lower extremity edema Left hip: Tenderness to palpation over groin and proximal thigh. Limited range of motion due to pain. Neuro/Mental Status: A&O x4. Coherent. Thoughts/Psych: Normal thought pattern. Appropriate mood and affect. Good judgement and insight Skin Exam: Normal inspection. Normal color. Warm. Dry laboratory and microbiology Laboratory Tests 04/08/25 05:06 Test 04/08/25 05:06 Range/Units Serum Glucose 102 74-106 mg/dL Labs and/or images reviewed: Labs reviewed by me, Image(s) reviewed by me Problem List/Assessment/Plan Problem List/Assessment/Plan # s/p mechanical fall # left intertrochanteric femoral fracture due to fall -IV fluid -Left Hip X-Ray: Moderately displaced left intertrochanteric femoral fracture. Soft tissues are unremarkable. -Pelvis X-Ray: Interval placement of left femoral intramedullary ofelia, intertrochanteric screw transfixing the intertrochanteric fracture. Expected postoperative changes including surrounding soft tissue emphysema, edema. -Orthopedic consult -basicervical intertrochanteric fracture -open reduction and internal fixation with cephalomedullary nail today -NPO since midnight -Chest X-Ray-No acute cardiopulmonary disease. -Cefazolin -Morphine -[place] -topical triamcinolone -Dilaudid 1mg q2h # peripheral neuropathy # possible anxiety -Gabapentin -Midazolam -Quetiapine # Essential hypertension -Nifedipine -Labetalol # Asthma -Albuterol inhaler # smoking, alcohol and marijuana use disorder -counselling done about cessation # vitamin D deficiency - vitamin D 15,000 unit weekly DVT prophylaxis: Levonox 30mg bid Goals of care: Full code, discussed for >16 minutes on 04/08/25 Plan discussed with patient Plan discussed with Dr. Aponte Plan discussed with: Patient My Orders My Orders Orders - JERMAINE MELVIN Procedure Category Date Status Time Complete Blood Count LAB 04/09/25 Verified 04:00 Basic Metabolic Panel LAB 04/09/25 Verified 04:00 Date of Service: Apr 08, 2025 Billing Provider: JOSE APONTE MD Common Visit Codes: [id number] INP/OBS CARE(HIGH) JERMAINE MELVIN Apr 08, 2025 19:44 JOSE APONTE MD Apr 11, 2025 18:58
[2025-04-09] VITALS (10 sets, daily range): BP systolic 131–142; BP diastolic 76–94; PULSE 100–127; RESP 16–18; TEMP 97.7–98.8; O2SAT 92–98
[2025-04-09 08:59] LABS: Nucleated Red Blood Cells % 0.1 %
[2025-04-09 09:00] LABS: Hematocrit 29.1 % (36.0-46.0); Hemoglobin 9.9 g/dL (12.2-16.2); Mean Corpuscular Hemoglobin 34.2 pg (28.0-32.0); Mean Corpuscular Volume 100.0 fL (80.0-100.0)
[2025-04-09 09:01] LABS: Anion Gap 9 (5-15); Carbon Dioxide 24 mmol/L (20-31); Chloride 105 mmol/L (98-107); Sodium 138 mmol/L (136-145)
[2025-04-09 09:02] LABS: Calcium 8.9 mg/dL (8.7-10.4)
[2025-04-09 09:04] LABS: Potassium 3.5 mmol/L (3.5-5.1)
[2025-04-09 09:07] LABS: Glucose 101 mg/dL (74-106)
[2025-04-09 09:13] LABS: BUN/Creatinine Ratio 9.8 (10.0-20.0); Blood Urea Nitrogen < 5 mg/dL (9-23)
--- NOTE | 2025-04-09 18:12 | DVHPNRES ---
Progress Note Date Seen: Apr 09, 2025 Resident Creating Document: JERMAINE MELVIN Medical Necessity Reason Pt with a Central, PICC or Fol: No Subjective Review of Systems This is a 64-year-old female with a past medical history of hypertension and asthma who presents with severe left hip pain following a fall at home. She reports tripping over a bed frame while caring for her grandchild with special needs. Pain is rated 10/10, localized to the left hip, worsened with movement, and partially relieved with rest. She denies any loss of consciousness, chest pain, or dizziness prior to the fall. She denies numbness, tingling, or weakness. During history taking, the patient experienced multiple episodes of vomiting due to pain. Left Hip X-Ray confirmed a left intertrochanteric femoral fracture. She is unable to ambulate, and surgical fixation is indicated. Nonoperative and operative options were discussed, and surgery was recommended to promote healing, enable faster ambulation, and reduce the risk of complications such as pressure ulcers and pneumonia. Risks, benefits, and alternatives were reviewed with the patient. She elected to proceed with surgery, acknowledging the possibility of nonunion or avascular necrosis due to the fractures location, which may require future hip replacement. Patient seen at bedside. Patient complains no new symptoms. Surgery was completed without any complications. Surgical dressing to the left hip visualizedclean, dry, and intact with minimal drainage. Patient instructed on plan of care and to call for assistance as needed. Patient has changed in code status from DNR to full code, which has been communicated and documented. Patient is currently awaiting physical therapy evaluation. Based on current functional status and anticipated needs, patient will likely require discharge to a half-way facility (SNF). Prior to admission, she lived alone and was independent, using only a cane. She is agreeable to discharge to a half-way facility (SNF) if needed and prefers [facility]. Patient has been informed of her rights to participate in discharge planning and to speak with a foster care social worker. She does not have a power of road mixer operator or advanced directive but was provided information and verbalized understanding. Earlier, the patient initially refused a blood transfusion for hemoglobin of 7.2 but later consented after discussion with her brother. She is currently stable, tolerating breakfast in high Fowlers position, with no signs of respiratory distress. Dressing to the left hip remains clean, dry, and intact with minimal drainage. Patient is awake, alert, and oriented. No complaints or concerns during evaluation. Agrees with discharge plan to SNF following hospitalization. Reports understanding of pending authorization from [facility] for transfer to [facility] in [place]. Objective vital signs Vital Sign Date Time Temp Pulse Resp B/P (MAP) Pulse Ox O2 Delivery O2 Flow Rate FiO2 04/09/25 17:00 98.8 127 16 131/94 (106) 94 98.8 04/09/25 08:00 Room Air* 0 21 Total Intake and Output 04/08/25 04/08/25 04/09/25 15:00 23:00 07:00 Intake Total 800 ml 600 ml Output Total 650 ml 900 ml Balance 150 ml -300 ml medications Current Medications Medications Dose Ordered Sig/Benjamin Route Start Time Stop Time Status Last Admin Dose Admin Sodium Chloride 10 ml Q8HR IV 04/06/25 06:00 04/09/25 09:04 10 ML Ondansetron HCl 4 mg Q4HP PRN IV 04/06/25 04:15 04/06/25 08:53 4 MG Acetaminophen 650 mg Q6HP PRN PO 04/06/25 04:15 Albuterol 90 mcg TID IN 04/06/25 06:00 Cancel Gabapentin 300 mg DAILY PO 04/06/25 10:00 04/09/25 08:56 300 MG Albuterol 2.5 mg TIDPRN PRN NEB 04/06/25 05:45 Cancel Nifedipine 60 mg DAILY PO 04/06/25 10:00 Hold 04/07/25 09:04 60 MG Sodium Chloride 1,000 ml @ 100 mls/hr Q10H IV 04/06/25 11:30 04/08/25 23:30 100 MLS/HR Quetiapine Fumarate 100 mg DAILY PO 04/07/25 10:00 04/09/25 08:56 100 MG Triamcinolone Acetonide 1 applic PRN TOP 04/06/25 14:45 Albuterol 2.5 mg Q8HPRN PRN NEB 04/06/25 14:45 Hydromorphone HCl 1 mg Q2HP PRN IV 04/06/25 15:00 04/09/25 06:00 1 MG Enoxaparin Sodium 30 mg Q12HR SC 04/06/25 22:00 04/09/25 08:56 30 MG Acetaminophen/ Hydrocodone Bitart 1 tab Q4HP PRN PO 04/06/25 15:00 04/09/25 17:28 1 TAB Ergocalciferol 50,000 unit Q7D PO 04/07/25 16:30 04/07/25 17:17 50,000 UNIT Examination General Appearance: Alert, oriented 3, in moderate distress due to pain Head Exam: Normal inspection Neck Exam: Normal inspection. Non-tender. Normal alignment Pulmonary/Respiratory: Chest non-tender. Clear bilateral breath sounds, no crackles, no wheezing. Cardiovascular/Chest: Regular rate and rhythm. No murmurs. No JVD. Peripheral Pulses: 2+ Radial (R). 2+ Radial (L). 2+ Pedal (R). 2+ Pedal (L) Abdominal Exam: Normal bowel sounds. Soft. normal abdomen, no visible veins, Nontender. No hepatospenomegaly. No masses Ankle Exam: Negative ankle edema Lower extremities: Left lower extremity shortened and externally rotated, pulses intact, Negative lower extremity edema Left hip: Tenderness to palpation over groin and proximal thigh. Limited range of motion due to pain. Neuro/Mental Status: A&O x4. Coherent. Thoughts/Psych: Normal thought pattern. Appropriate mood and affect. Good judgement and insight Skin Exam: Normal inspection. Normal color. Warm. Dry laboratory and microbiology Laboratory Tests 04/09/25 07:25 Test 04/09/25 07:25 Range/Units Serum Glucose 101 74-106 mg/dL Labs and/or images reviewed: Labs reviewed by me, Image(s) reviewed by me Problem List/Assessment/Plan Problem List/Assessment/Plan # s/p mechanical fall # left intertrochanteric femoral fracture due to fall -IV fluid -Left Hip X-Ray: Moderately displaced left intertrochanteric femoral fracture. Soft tissues are unremarkable. -Pelvis X-Ray: Interval placement of left femoral intramedullary ofelia, intertrochanteric screw transfixing the intertrochanteric fracture. Expected postoperative changes including surrounding soft tissue emphysema, edema. -Orthopedic consult -basicervical intertrochanteric fracture -open reduction and internal fixation with cephalomedullary nail today -NPO since midnight -Chest X-Ray-No acute cardiopulmonary disease. -Cefazolin -Morphine -[place] -topical triamcinolone -Dilaudid 1mg q2h # peripheral neuropathy # possible anxiety -Gabapentin -Midazolam -Quetiapine # Essential hypertension -Nifedipine -Labetalol # Asthma -Albuterol inhaler # smoking, alcohol and marijuana use disorder -counselling done about cessation # vitamin D deficiency - vitamin D 15,000 unit weekly DVT prophylaxis: Levonox 30mg bid Goals of care: Full code, discussed for >16 minutes on 04/09/25 Plan discussed with patient Plan discussed with Dr. Aponte Plan discussed with: Patient Date of Service: Apr 09, 2025 Billing Provider: JOSE APONTE MD Common Visit Codes: [id number] INP/OBS CARE(HIGH) JERMAINE MELVIN RESIDENT Apr 09, 2025 18:12 JOSE APONTE MD Apr 11, 2025 18:58
[2025-04-10] VITALS (8 sets, daily range): BP systolic 106–146; BP diastolic 70–102; PULSE 82–102; RESP 16–19; TEMP 98–98.7; O2SAT 91–100
[2025-04-10 10:29] LABS: Hematocrit 29.6 % (36.0-46.0); Hemoglobin 9.8 g/dL (12.2-16.2); Mean Corpuscular Hemoglobin 33.5 pg (28.0-32.0); Mean Corpuscular Volume 101.2 fL (80.0-100.0); Nucleated Red Blood Cells % 0.1 %
[2025-04-10 10:39] LABS: Chloride 107 mmol/L (98-107); Potassium 3.5 mmol/L (3.5-5.1); Sodium 137 mmol/L (136-145)
[2025-04-10 10:40] LABS: Anion Gap 9 (5-15); Calcium 9.1 mg/dL (8.7-10.4); Carbon Dioxide 21 mmol/L (20-31)
[2025-04-10 10:48] LABS: BUN/Creatinine Ratio 8.6 (10.0-20.0); Blood Urea Nitrogen < 5 mg/dL (9-23); Glucose 113 mg/dL (74-106)
--- NOTE | 2025-04-10 13:28 | DVHDSRES ---
Discharge Summary Date of Admission Resident Creating Document: JERMAINE MELVIN RESIDENT Apr 06, 2025 at 04:13 Date of Discharge: Apr 10, 2025 Labs/Diagnostic Data: Laboratory Results Test 04/10/25 10:08 04/07/25 07:58 04/06/25 03:30 04/06/25 01:21 White Blood Count 6.7 10^3/uL (4.4-10.8) Red Blood Count 2.92 10^6/uL (4.0-5.20) Hemoglobin 9.8 g/dL (12.2-16.2) Hematocrit 29.6 % (36.0-46.0) Mean Corpuscular Volume 101.2 fL (80.0-100.0) Mean Corpuscular Hemoglobin 33.5 pg (28.0-32.0) Mean Corpuscular Hemoglobin Concent 33.1 g/dL (32.0-36.0) Red Cell Distribution Width 18.1 % (11.8-14.3) Platelet Count 206 10^3/uL (140-450) Mean Platelet Volume 6.5 fL (6.9-10.8) Neutrophils (%) (Auto) 77.6 % (37.0-80.0) Lymphocytes (%) (Auto) 12.3 % (10.0-50.0) Monocytes (%) (Auto) 8.5 % (0.0-12.0) Eosinophils (%) (Auto) 1.0 % (0.0-7.0) Basophils (%) (Auto) 0.6 % (0.0-2.0) Neutrophils # (Auto) 5.2 10 ^3/uL (1.6-8.6) Lymphocytes # (Auto) 0.8 10 ^3/uL (0.4-5.4) Monocytes # (Auto) 0.6 10 ^3/uL (0-1.3) Eosinophils # (Auto) 0.1 10 ^3/uL (0-0.8) Basophils # (Auto) 0 10 ^3/uL (0-0.2) Nucleated Red Blood Cells 0.1 % Sodium Level 137 mmol/L (136-145) Potassium Level 3.5 mmol/L (3.5-5.1) Chloride Level 107 mmol/L (98-107) Carbon Dioxide Level 21 mmol/L (20-31) Anion Gap 9 (5-15) Blood Urea Nitrogen < 5 mg/dL (9-23) Creatinine 0.58 mg/dL (0.550-1.02) Glomerular Filtration Rate Calc 102 mL/min (>90) BUN/Creatinine Ratio 8.6 (10.0-20.0) Serum Glucose 113 mg/dL (74-106) Calcium Level 9.1 mg/dL (8.7-10.4) Total Bilirubin 0.4 mg/dL (0.2-1.0) Aspartate Amino Transferase (AST) 34 U/L (13-40) Alanine Aminotransferase (ALT) 17 U/L (7-40) Alkaline Phosphatase 81 U/L (46-116) Total Protein 6.2 g/dL (5.7-8.2) Albumin 4.1 g/dL (3.2-4.8) Urine Color Yellow (Yellow) Urine Clarity Clear (Clear) Urine pH 6.0 (5.0-9.0) Urine Specific [place] 1.019 (1.001-1.035) Urine Protein Trace (Negative) Urine Ketones 1+ (Negative) Urine Blood Negative /uL (Negative) Urine Nitrite Negative (Negative) Urine Bilirubin Negative (Negative) Urine Urobilinogen Normal mg/dL (Negative) Urine Leukocyte Esterase 2+ /uL (Negative) Urine RBC None seen /hpf (0 - 4) Urine Microscopic WBC 14 /HPF (0-5) Urine Squamous Epithelial Cells Few /hpf (<5) Urine Bacteria None seen /hpf (None Seen) Urine Glucose Normal mg/dL (Normal) Prothrombin Time 11.0 sec (9.3-11.8) Prothrombin Time INR 1.04 (0.9-1.15) Activated Partial Thromboplast Time < 20.0 SEC (24.5-34.5) Magnesium Level 2.0 mg/dL (1.6-2.6) Vitamin D 25-Hydroxy 23.2 ng/mL (30.0-100) Thyroid Stimulating Hormone (TSH) 0.87 uIU/mL (0.55-4.78) Other Laboratory Tests 04/10/25 10:08 Brief Hx & Hospital Course: This is a 64-year-old female with a past medical history of hypertension, asthma, peripheral neuropathy, and substance use disorder (tobacco, alcohol, marijuana), who presented with severe left hip pain following a mechanical fall at home. The patient reported tripping over a bed frame while caring for her grandchild with special needs. She denied loss of consciousness, chest pain, dizziness, or neurological symptoms. Pain was rated 10/10 and localized to the left hip, worsened with movement. She experienced multiple episodes of vomiting due to pain. Imaging revealed a moderately displaced left intertrochanteric femoral fracture. Orthopedic consultation was obtained, and the patient underwent open reduction and internal fixation with a cephalomedullary nail. Surgery was completed without complications. Postoperative imaging confirmed expected changes. The patient was NPO prior to surgery and received perioperative antibiotics and analgesics including cefazolin, morphine, [place], and Dilaudid. Postoperatively, the patient remained stable, alert, and oriented. Dressing to the left hip remained clean, dry, and intact with minimal drainage. She tolerated oral intake and had no signs of respiratory distress. She initially refused a blood transfusion for hemoglobin of 7.2 but later consented after discussion with her brother. Discharge planning was initiated. Although initially agreeable to transfer to a nursing home facility (SNF) in [place], the patient later refused and requested placement in a local [facility] SNF. Due to insurance limitations, she did not qualify for her preferred facility. She has since changed her mind and now requests home health with physical therapy instead of SNF placement. The attending physician has been notified and will follow up regarding this request. The patient has been informed of her rights regarding discharge planning and verbalized understanding. She was also provided information about advance directives and power of street flusher driver. The patients code status was changed from DNR to full code and documented. She is currently awaiting physical therapy evaluation. She remains stable, awake, alert, and oriented, with no new complaints or concerns. Examination General Appearance: Alert, oriented 3, in moderate distress due to pain Head Exam: Normal inspection Neck Exam: Normal inspection. Non-tender. Normal alignment Pulmonary/Respiratory: Chest non-tender. Clear bilateral breath sounds, no crackles, no wheezing. Cardiovascular/Chest: Regular rate and rhythm. No murmurs. No JVD. Peripheral Pulses: 2+ Radial (R). 2+ Radial (L). 2+ Pedal (R). 2+ Pedal (L) Abdominal Exam: Normal bowel sounds. Soft. normal abdomen, no visible veins, Nontender. No hepatospenomegaly. No masses Ankle Exam: Negative ankle edema Lower extremities: Left lower extremity shortened and externally rotated, pulses intact, Negative lower extremity edema Left hip: Tenderness to palpation over groin and proximal thigh. Limited range of motion due to pain. Neuro/Mental Status: A&O x4. Coherent. Thoughts/Psych: Normal thought pattern. Appropriate mood and affect. Good judgement and insight Skin Exam: Normal inspection. Normal color. Warm. Dry Operations or Procedures PROCEDURE(s): PELVS - PELVIS AP REASON: Post op eval ORDER NUMBER(s): [id number], ACCESSION NUMBER(s): [id number] Indication: Post op eval Technique: XY PELVIS APXY Comparison: 04/06/2025 FINDINGS/IMPRESSION: Interval placement of left femoral intramedullary ofelia, intertrochanteric screw transfixing the intertrochanteric fracture. Expected postoperative changes including surrounding soft tissue emphysema, edema. PROCEDURE(s): LHIP - L HIP COMPLETE XRAY REASON: LT HIP TROCH NAIL ORDER NUMBER(s): [id number], ACCESSION NUMBER(s): [id number] C-ARM FLUOROSCOPY: PROCEDURE: Left hip ORIF FLUOROSCOPY TIME: 95.1 seconds DAP: 6.0 mgy FINDINGS: Spot intraoperative C arm radiographs demonstrating left hip ORIF. IMPRESSION: Please refer to surgical report for detailed findings. - PROCEDURE(s): CARM1 - C ARM FLUOROSCOPY UP TO 60MIN REASON: LT HIP TROCH NAIL ORDER NUMBER(s): [id number], ACCESSION NUMBER(s): [id number] C-ARM FLUOROSCOPY: PROCEDURE: Left hip ORIF FLUOROSCOPY TIME: 95.1 seconds DAP: 6.0 mgy FINDINGS: Spot intraoperative C arm radiographs demonstrating left hip ORIF. IMPRESSION: Please refer to surgical report for detailed findings. - PROCEDURE(s): LHIP - L HIP COMPLETE XRAY REASON: pain s/p fall ORDER NUMBER(s): [id number], ACCESSION NUMBER(s): [id number] CLINICAL INDICATION: pain s/p fall TECHNIQUE: XY L HIP COMPLETE XRAY Comparison: None FINDINGS/IMPRESSION: : Moderately displaced left intertrochanteric femoral fracture. Soft tissues are unremarkable. - PROCEDURE(s): CXR1 - CHEST XRAY 1 VIEW REASON: weak ORDER NUMBER(s): [id number], ACCESSION NUMBER(s): [id number] CHEST RADIOGRAPH Indication: weak Technique: Single frontal view of the chest was obtained Comparison: CT ANGIO CHEST CONTRAST on DOS: 04/03/21, CHEST PORTABLE on DOS: 04/03/21 FINDINGS: Lines and Tubes: None Lungs: No focal consolidation. Pleura: No effusion. No pneumothorax. Cardiomediastinal contours: Unremarkable Bones: No acute osseous abnormality. IMPRESSION: 1. No acute cardiopulmonary disease. Operative Report - 2 Report Details Date: 04/06/25 Preop Diagnosis: Left hip intertrochanteric fracture, basicervical Postop Diagnosis: Left hip intertrochanteric fracture, basicervical Surgeon: Prosper Frias MD Costing Analyst: Marielena Smith, Physician Costing Analyst Anesthesiologist: Dr Rock Anesthesia: Regional (Spinal) Implant: AOS trochanteric nail, 8 mm, a cephalomedullary screw 80 mm, distal bicortical screw Consent: The patient was informed of the risks and benefits of the procedure. These include but are not limited to complications of anesthesia, postoperative infection, incomplete relief of symptoms, recurrence of symptoms, damage to blood vessels, nerves and tendons, deep venous thrombosis, pulmonary embolism and possible need for repeat surgery in the future. Complications: None Estimated Blood Loss: Less than 5 mL Indications for Surgery: The patient is a 64-year-old female who presented to the emergency room with a history of pain sustained by a fall. Clinical and radiological evaluation demonstrated intertrochanteric fracture, basicervical. Nonoperative and operative management options were discussed surgery was recommended for better healing, faster ambulation and return to daily activities and to prevent complications such as bed sores, pneumonia and other medical complications. Benefits, risks and treatment alternatives were discussed with her and her daughter. Surgical complications were also discussed. The decided to proceed with surgical option. It was specifically mentioned that due to the basicervical nature of the fracture, the fracture may not heal and/or AVN may be noted in the future which might necessitate hip replacement Name of Procedure Performed Left hip intertrochanteric nailing Procedure Details Procedure Details: Patient was identified in the preoperative holding area and the surgical site was marked. The consent was verified. She was brought into the operating room and placed supine on the operating table. General anesthesia was administered. Intravenous antibiotics were given. The extremity was prepped and draped in the usual sterile manner. A timeout was called out to confirm the identity of the patient, the nature of surgery, the site of surgery, the availability of implants and x-rays and allergies to medications. The patient was placed on the hip fracture distraction system. Other extremity was placed on support in abduction and flexion. The C-arm was brought in and gentle traction was applied, some abduction, internal rotation and adduction was then applied. This maneuver was repeated once for better reduction. Subtrochanteric extension was noted. This was well aligned.. An incision was made 2 cm proximal to the greater trochanter. The IT band was incised. The greater trochanter was palpated and a guidepin was inserted. AP and lateral views were obtained to confirm the trajectory. Next a proximal reamer was inserted to open up the canal. Next based on intraoperative measurements, a 9 mm proximal nail was inserted from the greater trochanter into the shaft. Good reduction was noted. AP and lateral views were obtained to confirm the trajectory of the nail. Next, the cephalic guidewire was inserted to hold the reduction. This was in acceptable position. The patient did have some [place] anatomy and even the 130 nail was a little prominent in the trochanteric area. Next the screw was inserted based on measurements. 80 mm screw was inserted. Then the set screw just distal to the cephalic screw was inserted in compression was achieved using the proprietary system. Excellent reduction was noted both in the AP and lateral views. A distal bicortical locking screw was now inserted. Excellent fixation was noted. Irrigation was given. The iliotibial band was closed with 2-0 Ethibond in the proximal incision. All the skin incisions were closed with 2-0 Vicryl and then donnie were used. Sterile dressing was applied. Local anesthetic was injected. Traction was released in both legs and the patient was moved to the stretcher. Condition Good Disposition Home PROSPER FRIAS MD Apr 06, 2025 13:35 DICTATED BY:PROSPER FRIAS MD DICTATED DATE/TIME:04/06/25 0475 ELECTRONICALLY SIGNED BY:PROSPER FRIAS MD 04/08/25 1421 - Condition at Discharge: Good Final Diagnosis/Problems List # s/p mechanical fall # Left hip intertrochanteric fracture, basicervical # peripheral neuropathy # possible anxiety # Essential hypertension # Asthma # smoking, alcohol and marijuana use disorder # vitamin D deficiency Discharge Disposition: Home with Health Services Discharge Instruct/Medications Diet: Regular Activity: No Restrictions, As Tolerated Follow Up/Referral: follow up with PCP within 1-2 weeks. Medications: Continue home medications as per EMR Scheduled Albuterol Sulfate (Albuterol Sulfate Hfa), AER INH PRN, (Reported) Amitriptyline HCl (Amitriptyline HCl), 1 TAB PO DAILY, (Reported) Diphenhydramine Hcl (Banophen), 2 CAP PO BID, (Reported) Gabapentin (Gabapentin), 1 TAB PO TID, (Reported) Hydrocodone-Acetaminophen (Hydrocodone/Acetaminophen 10-325 mg), 1 TAB PO TIDPRN, (Reported) Nifedipine (Nifedipine Er), 1 TAB PO DAILY, (Reported) Quetiapine Fumerate (Quetiapine Fumarate), 1 TAB PO DAILY, (Reported) Rosuvastatin Calcium (Rosuvastatin Calcium), 1 TAB PO DAILY, (Reported) Triamcinolone Acetonide (Kenalog), 1 APPLIC TOP PRN, (Reported) Scheduled PRN Hydrocodone-Acetaminophen (Hydrocodone Bitartrate/AC 10-325 mg), 1 TAB PO Q6HP PRN Discharge Statement: "Patient was advised to return to the ER or call 911 if any headaches, dizziness, shortness of breath, chest pain, abdominal pain, bleeding, fevers, or worsening of medical condition. Patient was counseled about treatment plan, medications, possible side effects, patientverbalized understanding. All questions were answered to the best of my ability. This discharge took greater then 30 minutes in planning, reviewing documentation, counseling the patient, and discussing with other team members." ASSESSMENT ASSESSMENT Assessment # s/p mechanical fall # Left hip intertrochanteric fracture, basicervical # peripheral neuropathy # possible anxiety # Essential hypertension # Asthma # smoking, alcohol and marijuana use disorder # vitamin D deficiency Date of Service: Apr 10, 2025 Billing Provider: JOSE FRANCOIS MD Common Visit Codes: [id number] DISCH DAY >30min JERMAINE MELVIN RESIDENT Apr 10, 2025 13:28 JOSE FRANCOIS MD Apr 11, 2025 18:59
[2025-04-10] MEDS: ACETAMINOPHEN 325 MG TAB PO PRN (21:41)
[2025-04-11] VITALS (8 sets, daily range): BP systolic 125–171; BP diastolic 79–103; PULSE 88–122; RESP 15–18; TEMP 36.7; O2SAT 94–100
[2025-04-11] MEDS ORDERED: HYDR-4798 PO (11:51)
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
== END 2025-04-11 17:59 | disposition home health service (06) | DRG 481 ==
LOC: EDBD 00:31 → ER 00:31 → OVERFLOW 04:13 → WEST WING 04:19
PROVIDERS: ADMIT Internal Medicine Geriatric Medicine; ATTEND Internal Medicine Geriatric Medicine
PROC: 30233N1 Transfusion of Nonautologous Red Blood Cells into Peripheral Vein, Percutaneous Approach (ICD-10-PCS; 2025-04-06)
PROC: 0QS734Z Reposition Left Upper Femur with Internal Fixation Device, Percutaneous Approach (ICD-10-PCS; principal; 2025-04-06 13:12)
DX: S72.142A Displaced intertrochanteric fracture of left femur, initial encounter for closed fracture (principal); R71.0 Precipitous drop in hematocrit; I10 Essential (primary) hypertension; F17.210 Nicotine dependence, cigarettes, uncomplicated; W06.XXXA Fall from bed, initial encounter; J44.89 Other specified chronic obstructive pulmonary disease; Y92.003 Bedroom of unspecified non-institutional (private) residence as the place of occurrence of the external cause; Z83.3 Family history of diabetes mellitus; Z86.73 Personal history of transient ischemic attack (TIA), and cerebral infarction without residual deficits; Z90.710 Acquired absence of both cervix and uterus; Y99.8 Other external cause status; J45.909 Unspecified asthma, uncomplicated; F41.9 Anxiety disorder, unspecified; G62.9 Polyneuropathy, unspecified; E55.9 Vitamin D deficiency, unspecified
CPT/HCPCS: 36415; 36430; 71045; 72170; 73502; 76000; 80048; 80053; 81001; 82306; 83735; 84443; 85025; 85610; 85730; 86850; 86900; 86901; 86920; 96374; 96375; 97110; 97116; 97163; C1713; G0378; J2250; J2405; J2704; J3490